=== PATIENT | female | born 1980 | race American Indian/Alaskan Native ===

== ENCOUNTER 2016-04-23 12:54 | Emergency (ER) | payer MEDICAID ==
[2016-04-23 13:27] LABS: Basophils % (Auto) 0.4 % (0.0-1.8); Eosinophils % (Auto) 6.1 % (0.0-4.3); Mean Corpuscular HGB Conc 30 % (30-34); Platelet Count 335 K/mm3 (140-440); Red Blood Count 5.86 M/mm3 (3.65-5.03); White Blood Count 5.5 K/mm3 (4.5-11.0)
[2016-04-23 13:28] LABS: Hematocrit 34.6 % (30.3-42.9); Hemoglobin 10.4 gm/dl (10.1-14.3); Mean Corpuscular Hemoglobin 18 pg (28-32); Mean Corpuscular Volume 59 fl (79-97); Red Cell Distribution Width 20.2 % (13.2-15.2)
[2016-04-23 13:57] LABS: Anion Gap 16 mmol/L; BUN/Creatinine Ratio 12.85; Blood Urea Nitrogen 9 mg/dL (7-17); Calcium 8.2 mg/dL (8.4-10.2); Carbon Dioxide 26 mmol/L (22-30); Chloride 101.1 mmol/L (98-107); Creatine Kinase 66 units/L (30-135); Glucose 144 mg/dL (65-100); Potassium 4.3 mmol/L (3.6-5.0); Sodium 139 mmol/L (137-145)
[2016-04-23 13:59] LABS: Creatine Kinase MB < 1.0 ng/mL (0.0-4.0)
--- NOTE | 2016-04-23 14:35 | Emergency Department Report ---
Chief Complaint: Chest Pain Stated Complaint: CHEST PAIN/SOB Time Seen by Provider: 04/23/16 14:34 - HPI History of Present Illness: Patient here complaining the chest pain since Tuesday. Pain is located in the left side of chest and underneath her left breast radiating to jaw and her left arm. She reports cough and shortness of breath. Describes the pain as sharp and 10 out of 10. Patient has a history of asthma and coughs mostly with her asthma. Cardiac enzymes are negative and lab work within normal levels. EKG without any acute findings. Patient will be seen in [facility] area. - ROS Review of Systems: All systems are negative unless stated in HPI above. - Exam Vital Signs: Vital Signs 04/23/16 13:13 Temperature 98.4 F Pulse Rate 100 H Respiratory 18 Rate Blood Pressure 132/93 O2 Sat by Pulse 100 Oximetry Physical Exam: General: This is a [id number] female well-nourished well-developed nontoxic in appearance. CV: S1, S2. Regular rate and rhythm. Lungs: Clear to auscultate bilaterally. No rhonchi wheezes or rales. Congested cough MSE screening note: Focused history and physical exam performed. Due to findings the following was ordered:see mdm ED Medical Decision Making - Lab Data Result diagrams: 04/23/16 13:21 04/23/16 13:21 - Medical Decision Making MDM: xopinex and atrovent, decadron Seen by provider in triage. Labs reviewed To fast tractk to be see Chest xray ED Disposition for MSE Condition: Stable
[2016-04-23] MEDS ORDERED: ATROVENT IH ONE (14:37)
[2016-04-23] MEDS ORDERED: XOPENEX IH ONE (14:37)
[2016-04-23] MEDS ORDERED: DECADRON IM ONE (14:37)
[2016-04-23 19:54] VITALS: BP 111/79
--- NOTE | 2016-04-23 20:26 | Emergency Department Report ---
ED General Adult HPI - General Chief complaint: Chest Pain Stated complaint: CHEST PAIN/SOB Time Seen by Provider: 04/23/16 14:34 Source: patient Mode of arrival: Ambulatory Limitations: No Limitations - History of Present Illness Initial comments: 36-year-old female with a past medical history of asthma diabetes and hypertension. Patient reports that she is supposed to be on metformin but does not take it secondary to GI upset, does not take gabapentin because it made her skin felt like he was burning so she stopped that. She does report that she donated plasma on Tuesday as well as Tuesday and that's when she started to have symptoms of left-sided chest pain under her breast that radiates to her jaw and left arm she reports shortness of breathing she describes pain as being sharp. Patient reports she been having a cough productive of yellow green and brown sputum. She does engage that she had bronchitis and recent past and was given Z-Miguel Angel which she improved and now she is coming down with these new signs and symptoms. Severity scale (0 -10): 8 - Related Data Previous Rx's Medication Instructions Recorded Last Taken Type ALBUTEROL Inhaler [ProAir HFA 2 puff IH QID PRN #1 inhalation 04/23/16 Unknown Rx Inhaler] Acetaminophen/Codeine [Tylenol #3] 1 tab PO Q6H PRN #20 tab 04/23/16 Unknown Rx Azithromycin [Zithromax] 250 mg PO QDAY #6 tablet 04/23/16 Unknown Rx Allergies Allergy/AdvReac Type Severity Reaction Status Date / Time aspirin Allergy Shortness Verified 04/23/16 13:13 of Breath heparin Allergy Shortness Verified 04/23/16 13:13 of Breath ED Review of Systems ROS: Stated complaint: CHEST PAIN/SOB Other details as noted in HPI Constitutional: chills, fever ENT: denies: throat pain Respiratory: cough, shortness of breath Cardiovascular: chest pain Gastrointestinal: denies: abdominal pain, nausea, vomiting, diarrhea Genitourinary: denies: urgency, dysuria ED Past Medical Hx - Past Medical History Hx Hypertension: Yes Hx Diabetes: Yes Hx Asthma: Yes - Social History Smoking Status: Never Smoker Substance Use Type: None - Medications Home Medications: Home Medications Medication Instructions Recorded Confirmed Last Taken Type ALBUTEROL Inhaler [ProAir HFA 2 puff IH QID PRN #1 inhalation 04/23/16 Unknown Rx Inhaler] Acetaminophen/Codeine [Tylenol #3] 1 tab PO Q6H PRN #20 tab 04/23/16 Unknown Rx Azithromycin [Zithromax] 250 mg PO QDAY #6 tablet 04/23/16 Unknown Rx ED Physical Exam - General Limitations: No Limitations ED Course Vital Signs 04/23/16 04/23/16 13:13 19:50 Temperature 98.4 F 98.1 F Pulse Rate 100 H 92 H Respiratory 18 20 Rate Blood Pressure 132/93 Blood Pressure 111/79 [Right] O2 Sat by Pulse 100 100 Oximetry ED Medical Decision Making - Lab Data Result diagrams: 04/23/16 13:21 04/23/16 13:21 - Radiology Data Evaluated by this provider. Review of labs show that there is no cardiac involvement she has a normal troponin and CK-MB is less than 1.0 her EKG was within normal sinus rhythm. Chest x-ray reviewed by me and Dr. Haley should additional CHF no signs of infiltrates. Discussed with patient that we will discharge her on an antibiotic and have her follow-up with her primary care provider in 3-5 days. Patient verbalized understanding. Critical care attestation.: If time is entered above; I have spent that time in minutes in the direct care of this critically ill patient, excluding procedure time. ED Disposition Clinical Impression: Upper respiratory infection Qualifiers: URI type: unspecified viral URI Qualified Code(s): J06.9 - Acute upper respiratory infection, unspecified; B97.89 - Other viral agents as the cause of diseases classified elsewhere Disposition: DISCHARGED TO HOME OR SELFCARE Is pt being admited?: No Does the pt Need Aspirin: No Condition: Stable Instructions: Upper Respiratory Infection (ED) Additional Instructions: All antibiotics as prescribed using Tylenol for breakthrough pain he can get [id number] Robitussin for cough. Very important to follow-up at your primary care provider in 3-5 days. Prescriptions: Acetaminophen/Codeine [Tylenol #3] 1 tab PO Q6H PRN #20 tab PRN Reason: Pain ALBUTEROL Inhaler [ProAir HFA Inhaler] 2 puff IH QID PRN #1 inhalation PRN Reason: Shortness Of Breath Azithromycin [Zithromax] 250 mg PO QDAY #6 tablet Referrals: PRIMARY CARE,MD [Primary Care Provider] - 3-5 Days your,provider [Other] - 3-5 Days Forms: Work/School Release Form(ED)
--- NOTE | 2016-04-23 21:01 | XRay Report ---
FINAL REPORT PROCEDURE: XR CHEST ROUTINE 2V TECHNIQUE: two views of the chest are obtained HISTORY: cough and congestion COMPARISON: No prior studies are available for comparison. FINDINGS: The heart is normal in size. There is no focal infiltrate, pneumothorax or pleural effusion. IMPRESSION: No abnormalities are seen.
== END 2016-04-23 20:33 | disposition home or self-care (01) ==
LOC: ED 12:54
DX: J06.9 Acute upper respiratory infection, unspecified (principal); B97.89 Other viral agents as the cause of diseases classified elsewhere; I10 Essential (primary) hypertension; E11.9 Type 2 diabetes mellitus without complications; J45.909 Unspecified asthma, uncomplicated; Z88.6 Allergy status to analgesic agent; Z88.8 Allergy status to other drugs, medicaments and biological substances
CPT/HCPCS: 36415; 71020; 80048; 82550; 82553; 84484; 85025; 93005; 93010

== ENCOUNTER 2017-10-04 14:21 | Emergency (ER) | payer MEDICAID ==
[2017-10-04 14:39] VITALS: BP 159/101
--- NOTE | 2017-10-04 20:47 | XRay Report ---
FINAL REPORT PROCEDURE: XR SPINE LUMBOSACRAL 2-3V TECHNIQUE: Lumbosacral spine, three views HISTORY: fall injury, pain COMPARISON: No prior studies are available for comparison. FINDINGS: No scoliosis. The vertebral body heights and alignment are maintained. No acute osseous abnormality is seen IMPRESSION: No acute fracture or subluxation is seen
--- NOTE | 2017-10-04 20:48 | XRay Report ---
FINAL REPORT PROCEDURE: XR HIP 2-3V RT TECHNIQUE: RIGHT hip radiographs, 2 views each, including AP view of the pelvis. HISTORY: fall inury COMPARISON: No prior studies are available for comparison. FINDINGS: No acute fracture or dislocation. No focal osseous lesions. Joint spaces are preserved. No osteoarthritic changes are seen. IMPRESSION: No acute fracture or dislocation is seen
--- NOTE | 2017-10-04 21:39 | Emergency Department Report ---
HPI - General Chief Complaint: Fall Time Seen by Provider: 10/04/17 21:29 - HPI HPI: 37-year-old female presents to the emergency department with complaint of some pain from the right hip down to the knee that is a burning sensation. This occurred after the patient fell or slipped down a few stairs inside her apartment because there is a faulty handrail. She says that she did this last or Tuesday and then again today. She is able to ambulate and bear weight but says that she has a slight limp. He does have a history of sciatica and she thinks that this incident exacerbated it. She denies any numbness or paresthesias. She did not take anything for her symptoms prior to presentation. Patient has some history of hypertension, diabetes that she tries to control with diet and lifestyle. She follows up with a primary care physician and has another appointment coming up on , in 2 days. ED Past Medical Hx - Past Medical History Hx Hypertension: Yes Hx Diabetes: Yes Hx Asthma: Yes - Surgical History Additional Surgical History: tubiligation - Social History Smoking Status: Never Smoker Substance Use Type: None - Medications Home Medications: Home Medications Medication Instructions Recorded Confirmed Last Taken Type ALBUTEROL Inhaler [ProAir HFA 2 puff IH QID PRN #1 inhalation 04/23/16 Unknown Rx Inhaler] Acetaminophen/Codeine [Tylenol #3] 1 tab PO Q6H PRN #20 tab 04/23/16 Unknown Rx Azithromycin [Zithromax] 250 mg PO QDAY #6 tablet 04/23/16 Unknown Rx HYDROcodone/APAP 5-325 [[place] 1 each PO Q6HR PRN #10 tablet 10/04/17 Unknown Rx 5/325] ED Review of Systems ROS: Stated complaint: FALL Other details as noted in HPI Comment: All other systems reviewed and negative Constitutional: denies: chills, fever Eyes: denies: eye pain, eye discharge, vision change ENT: denies: ear pain, throat pain Respiratory: denies: cough, shortness of breath, wheezing Cardiovascular: denies: chest pain, palpitations Endocrine: no symptoms reported Gastrointestinal: denies: abdominal pain, nausea, diarrhea Genitourinary: denies: urgency, dysuria, discharge Musculoskeletal: arthralgia, myalgia Skin: denies: rash, lesions Neurological: denies: headache, weakness Physical Exam - Physical Exam Vital Signs: Vital Signs 10/04/17 14:35 Temperature 97.8 F Pulse Rate 93 H Respiratory 18 Rate Blood Pressure 159/101 O2 Sat by Pulse 98 Oximetry Physical Exam: GENERAL: The patient is well-developed well-nourished. HENT: Normocephalic. Atraumatic. Patient has moist mucous membranes. EYES: Extraocular motions are intact. NECK: Supple. No meningitic signs are noted. There is no adenopathy noted. CHEST/LUNGS: Clear to auscultation. There is no respiratory distress noted. HEART/CARDIOVASCULAR: Regular. There is no tachycardia. There is no murmur. ABDOMEN: Abdomen is soft, nontender. Patient has normal bowel sounds. Obese habitus. SKIN: Skin is warm and dry. NEURO: The patient is awake, alert, and oriented. The patient is cooperative. The patient has no focal neurologic deficits. The patient has normal speech. MUSCULOSKELETAL: There is some reproducible tenderness along the right upper extremity from the hip to the knee but no obvious deformity.. There is no limitation range of motion. BACK: No midline lumbar or thoracic tenderness to palpation, step-off or deformity. ED Course Vital Signs 10/04/17 14:35 Temperature 97.8 F Pulse Rate 93 H Respiratory 18 Rate Blood Pressure 159/101 O2 Sat by Pulse 98 Oximetry ED Medical Decision Making - Radiology Data Radiology results: image reviewed interpreted by me: x-rays of the lumbar spine and right hip do not show any fracture, dislocation, subluxation or any acute processes. - Medical Decision Making Patient has been having some pain from the right hip down to the knee and earlier some low back pain after sliding down some stairs at her apartment complex. She denies hitting her head or any loss of consciousness. She has no other complaints at this time. He does have a history of sciatica and says that this feels similar. X-rays were done of the hip and the lumbar spine do not show any fracture, dislocation, subluxation or any acute processes. The patient says that her blood sugar usually is about 120 despite not being on any diabetes medications. Her blood pressure is slightly elevated but she denies any headache, chest pain. She has an appointment with her primary care physician in 2 days. She'll be discharged home with a small amount of pain medication and a referral for an orthopedist but will keep her appointment with her primary care physician. She will return to the ER with any worsening of her symptoms or any acute distress. - Differential Diagnosis sciatica, contusion, fracture, sprain Critical Care Time: No Critical care attestation.: If time is entered above; I have spent that time in minutes in the direct care of this critically ill patient, excluding procedure time. ED Disposition Clinical Impression: Right hip pain, Right leg pain Sciatica Qualifiers: Laterality: right Qualified Code(s): M54.31 - Sciatica, right side Disposition: DC- TO HOME OR SELFCARE Is pt being admited?: No Condition: Stable Instructions: Sciatica (ED), Arthralgia (ED), Fall Prevention (ED) Additional Instructions: Please follow-up with your primary care physician as previously scheduled. I have given you a referral for a local orthopedist, Dr. Castillo, to follow up regarding your hip and leg pain and sciatica. Return to the emergency Department with any worsening of your symptoms or any acute distress. Try and stay away from foods that are high in salt and caffeinated products to help with your blood pressure. Keep a blood pressure log. You have been prescribed a medication that is sedating and therefore should not be taken prior to driving, working, and responsible for children and in no way should be mixed with alcohol of any quantity. Prescriptions: HYDROcodone/APAP 5-325 [[place] 5/325] 1 each PO Q6HR PRN #10 tablet PRN Reason: Pain Referrals: PRIMARY CARE, [Primary Care Provider] - ANJU SHANKAR MD [Staff Physician] - 2-3 Days Time of Disposition: 21:39
== END 2017-10-04 21:45 | disposition home or self-care (01) ==
LOC: ED 14:21
DX: M25.551 Pain in right hip (principal); M54.31 Sciatica, right side; I10 Essential (primary) hypertension; E11.9 Type 2 diabetes mellitus without complications; J45.909 Unspecified asthma, uncomplicated; Z98.51 Tubal ligation status; W10.9XXA Fall (on) (from) unspecified stairs and steps, initial encounter; Y93.89 Activity, other specified; Y99.8 Other external cause status; Y92.038 Other place in apartment as the place of occurrence of the external cause
CPT/HCPCS: 72100; 99283

== ENCOUNTER 2017-12-02 11:29 | Outpatient (CLI) | payer MEDICAID ==
--- NOTE | 2017-12-02 12:19 | XRay Report ---
RIGHT KNEE, 3 views: History: Pain in right knee. The bony architecture is intact without evidence of fracture or dislocation. No significant soft tissue abnormality is seen. IMPRESSION: Unremarkable right knee.
--- NOTE | 2017-12-02 12:20 | XRay Report ---
RIGHT ANKLE, 3 views: History: right ankle pain. Findings: Moderate soft tissue swelling or pedal edema is identified. No acute osseous abnormality or joint pathology is identified. The fifth metatarsal base is intact. Impression: Soft tissue swelling. No acute osseous injury.
== END 2017-12-02 11:30 | disposition home or self-care (01) ==
LOC: XRAY 11:29
PROVIDERS: ATTEND Orthopaedic Surgery
DX: R22.41 Localized swelling, mass and lump, right lower limb (principal); I10 Essential (primary) hypertension; J45.909 Unspecified asthma, uncomplicated; Z88.6 Allergy status to analgesic agent; Z88.8 Allergy status to other drugs, medicaments and biological substances